=== PATIENT | female | born 1985 | race Caucasian/White ===

== ENCOUNTER 2017-11-22 09:03 | Inpatient (IN) | payer MEDICAID ==
[2017-11-22] MEDS ORDERED: MISOPROSTOL 200 MCG TAB PR ×2 (09:30→23:00)
[2017-11-22] MEDS ORDERED: CARBOPROST 250 MCG INJ IM ×2 (09:30→23:00)
[2017-11-22] MEDS ORDERED: OXYTOCIN 30 UNITS/LR 500 ML IV ×3 (09:30→23:00)
[2017-11-22] MEDS ORDERED: AMPICILLIN 2 GM/NS (PMX) 100 ML IV (09:30)
[2017-11-22] MEDS ORDERED: METHYLERGONOVINE 0.2 MG INJ IM ×2 (09:30→23:00)
[2017-11-22] MEDS ORDERED: IBUPROFEN 600 MG TAB PO (09:30)
[2017-11-22] MEDS: LACTATED RINGER'S 1,000 ML IV ×3 (10:00→18:45)
[2017-11-22 10:14] LABS: ADD MAN DIFF? NO
[2017-11-22 10:28] LABS: ABNORMAL IP MESSAGE 1; BASOPHILS % 0.5 % (0.0-2.0); EOSINOPHILS # 0.1 10^3/ul (0.0-0.5); HEMATOCRIT 37.5 % (37.0-47.0); HEMOGLOBIN 12.3 g/dl (12.0-16.0); LYMPHOCYTES # 1.8 10^3/ul (0.8-2.9); LYMPHOCYTES % 20.7 % (15.0-51.0); MEAN CORPUSCULAR HEMOGLOBIN 29.8 pg (29.0-33.0); MEAN CORPUSCULAR HGB CONC 32.8 g/dl (32.0-37.0); MEAN CORPUSCULAR VOLUME 90.8 fl (82.0-101.0); MONOCYTE # 0.6 10^3/ul (0.3-0.9); MONOCYTES % 7.1 % (0.0-11.0); NEUTROPHIL # 6.1 10^3/ul (1.6-7.5); PLATELET COUNT 138 10^3/UL (140-415); RED BLOOD COUNT 4.13 10^6/ul (4.20-5.40)
[2017-11-22 10:28] LABS: WHITE BLOOD COUNT 8.7 10^3/ul (4.8-10.8)
[2017-11-22 10:30] LABS: MEAN PLATELET VOLUME 14.1 fl (7.4-10.4); POSITIVE DIFF @See below
[2017-11-22 10:47] LABS: INR 0.94; PROTIME 12.7 Sec (11.9-14.9)
[2017-11-22 10:48] LABS: PARTIAL THROMBOPLASTIN TIME 28.3 Sec (25.0-35.0)
[2017-11-22] MEDS: DINOPROSTONE 10 MG VAG SUPP VAG (11:41)
[2017-11-22 12:01] LABS: HEPATITIS B SURFACE ANTIGEN NEGATIVE (NEGATIVE)
[2017-11-22 12:12] LABS: ADD UMIC NO; UR ASCORBIC ACID NEGATIVE (NEGATIVE); UR BILIRUBIN (Dip) NEGATIVE (NEGATIVE); UR BLOOD (Dip) NEGATIVE (NEGATIVE); UR CLARITY CLEAR (CLEAR); UR COLOR STRAW (YELLOW); UR GLUCOSE (Dip) NEGATIVE (NEGATIVE); UR KETONES (Dip) NEGATIVE (NEGATIVE); UR LEUKOCYTE ESTERASE (Dip) NEGATIVE Leu/ul (NEGATIVE); UR NITRITE (Dip) NEGATIVE (NEGATIVE); UR SPECIFIC GRAVITY (Dip) 1.009 (1.003-1.030); UR TOTAL PROTEIN (Dip) NEGATIVE (NEGATIVE); UR UROBILINOGEN (Dip) NEGATIVE (NEGATIVE)
[2017-11-22] MEDS ORDERED: AMPICILLIN 1 GM/NS (PMX) 50 ML IV (13:30)
[2017-11-22] MEDS: BUTORPHANOL 2 MG INJ IV (14:32)
[2017-11-22] MEDS ORDERED: TERBUTALINE 1 ML (17:01)
[2017-11-22] MEDS: TERBUTALINE 1 MG/ML INJ SC (17:07)
[2017-11-22] MEDS: LIDOCAINE 1% (MPF) 30 ML INJ INJ (19:23)
[2017-11-22] MEDS: OXYTOCIN 30 UNITS/LR 500 ML IV ×2 (19:23→19:57)
[2017-11-22] MEDS: MINERAL OIL LIGHT 10 ML VIAL TOP (19:24)
[2017-11-22] MEDS: HYDROmorphONE 0.5 MG/0.5 ML SYG IV (19:31)
[2017-11-22 19:45] LABS: RAPID PLASMA REAGIN NONREACTIVE (NR)
[2017-11-22] MEDS: LEVETIRACETAM 750 MG TAB PO (21:31)
[2017-11-22] MEDS ORDERED: HYDROCODONE/APAP (5/325) TAB PO ×2 (23:00)
[2017-11-22] MEDS ORDERED: DIBUCAINE 1% 30 GM OINT PR (23:00)
[2017-11-22] MEDS ORDERED: ZOLPIDEM 5 MG TAB PO (23:00)
[2017-11-22] MEDS ORDERED: LANOLIN 7 GM TUBE TOP (23:00)
[2017-11-23] MEDS: BENZOCAINE 20% 56 ML SPRAY TOP (00:51)
[2017-11-23] MEDS: WITCH HAZEL/GLYCERIN PAD PR (00:52)
[2017-11-23] MEDS: LACTATED RINGER'S 1,000 ML IV* ×4 (00:53→22:43)
[2017-11-23] MEDS: IBUPROFEN 600 MG TAB PO ×4 (06:02→18:06)
[2017-11-23 08:11] LABS: ADD MAN DIFF? NO
[2017-11-23 08:16] LABS: ABNORMAL IP MESSAGE 1; BASOPHILS % 0.2 % (0.0-2.0); EOSINOPHILS % 0.2 % (0.0-7.0); HEMATOCRIT 33.6 % (37.0-47.0); HEMOGLOBIN 11.6 g/dl (12.0-16.0); LYMPHOCYTES # 1.8 10^3/ul (0.8-2.9); LYMPHOCYTES % 15.8 % (15.0-51.0); MEAN CORPUSCULAR HGB CONC 34.5 g/dl (32.0-37.0); MEAN CORPUSCULAR VOLUME 89.8 fl (82.0-101.0); MEAN PLATELET VOLUME 13.7 fl (7.4-10.4); MONOCYTE # 0.6 10^3/ul (0.3-0.9); MONOCYTES % 5.6 % (0.0-11.0); NEUTROPHIL # 8.7 10^3/ul (1.6-7.5); NEUTROPHILS % 77.8 % (39.0-77.0); PLATELET COUNT 128 10^3/UL (140-415); RED BLOOD COUNT 3.74 10^6/ul (4.20-5.40); RED CELL DISTRIBUTION WIDTH 13.1 % (11.5-14.5)
[2017-11-23 08:16] LABS: WHITE BLOOD COUNT 11.2 10^3/ul (4.8-10.8)
[2017-11-23 08:20] LABS: POSITIVE DIFF @See below
[2017-11-23] MEDS: MAGNESIUM HYDROXIDE 30ML CUP PO ×2 (08:55→21:34)
[2017-11-23] MEDS: LEVETIRACETAM 750 MG TAB PO ×2 (08:55→21:34)
[2017-11-23] MEDS: SENNA/DOCUSATE NA (8.6MG/50MG) TAB PO ×2 (08:55→21:34)
[2017-11-24] MEDS: IBUPROFEN 600 MG TAB PO ×3 (00:17→12:04)
[2017-11-24] MEDS: LACTATED RINGER'S 1,000 ML IV* ×2 (06:43→14:43)
[2017-11-24] MEDS: VARICELLA VACCINE LIVE/PF 1,350 UNIT/0.5 ML ML SC* (09:00)
[2017-11-24] MEDS: SENNA/DOCUSATE NA (8.6MG/50MG) TAB PO (09:12)
[2017-11-24] MEDS: LEVETIRACETAM 750 MG TAB PO (09:12)
[2017-11-24] MEDS: MAGNESIUM HYDROXIDE 30ML CUP PO (09:12)
[2017-11-24] MEDS: DIPHTH/TET/ACEL PERTUSS (ADULT) 0.5 ML VIAL IM* (11:46)
[2017-11-24] MEDS: MEASLES,MUMPS,RUBELLA VACCINE INJ SC* (11:48)
[2017-11-24] MEDS: WITCH HAZEL/GLYCERIN PAD PR (12:04)
[2017-11-24] MEDS: BENZOCAINE 20% 56 ML SPRAY TOP (12:04)
== END 2017-11-24 14:50 | disposition home or self-care (01) | DRG 775 ==
LOC: L-D 09:03 → PP1 22:31
PROVIDERS: Obstetrics & Gynecology
PROC: 10E0XZZ Delivery of Products of Conception, External Approach (ICD-10-PCS; principal; 2017-11-22 09:00)
PROC: 0UQMXZZ Repair Vulva, External Approach (ICD-10-PCS; 2017-11-22 09:00)
DX: O99.354 Diseases of the nervous system complicating childbirth (principal); G40.909 Epilepsy, unspecified, not intractable, without status epilepticus; O70.0 First degree perineal laceration during delivery; Z37.0 Single live birth; Z3A.39 39 weeks gestation of pregnancy; Z23 Encounter for immunization
CPT/HCPCS: 81003; 85025; 85610; 85730; 86592; 86850; 86900; 86901; 87086; 87340; 90715